=== PATIENT | female | born 1995 | race Caucasian/White ===

== ENCOUNTER 2024-03-03 06:20 | Emergency (ER) | payer MEDICAID ==
[~2024-03-03] VITALS: Ht 165.1 cm; Wt 65.0 kg
[2024-03-03 06:24] VITALS: TEMP 97.8; O2SAT 97
[2024-03-03 08:01] LABS: BASOPHILS % 0.2 % (0.0-2.0); EOSINOPHILS % 0.7 % (0.0-5.0); HEMATOCRIT. 42.1 % (36.0-48.0); HEMOGLOBIN. 13.5 g/dL (12.0-16.0); LYMPHOCYTES % 13.5 % (20.0-50.0); MEAN CORPUSCULAR HEMOGLOBIN 30.4 pg (28.0-32.0); MEAN CORPUSCULAR HGB CONC 32.1 g/dL (31.0-37.0); MEAN CORPUSCULAR VOLUME 94.8 fL (81.0-99.0); MEAN PLATELET VOLUME 8.5 fl (7.4-10.4); MONOCYTES % 5.2 % (2.0-8.0); NEUTROPHILS % 80.4 % (40.0-76.0); PLATELET 266 x1000/uL (130-400); RED BLOOD CELL COUNT 4.44 mill/uL (4.2-5.4); RED CELL DISTRIBUTION WIDTH 13.3 % (11.6-14.6); WHITE BLOOD COUNT 11.5 x1000/uL (4.5-11.0)
[2024-03-03 09:30] LABS: CHLORIDE 106 mEq/L (98-107); POTASSIUM 4.8 mEq/L (3.5-5.1); SODIUM 141 mEq/L (136-145)
[2024-03-03 09:31] LABS: CARBON DIOXIDE 24 mEq/L (21-32)
[2024-03-03 09:36] LABS: CREATININE 0.8 mg/dL (0.6-1.0); ETHANOL BLOOD < 10 mg/dL (<10); GLUCOSE 90 mg/dL (70-105); UREA NITROGEN BLOOD 10 mg/dL (9-23)
[2024-03-03 10:00] VITALS: BP 104/43; PULSE 98; RESP 15; O2SAT 98
[2024-03-03] MEDS ORDERED: NALO4SPR BOTHNSTRLS (10:25)
== END 2024-03-03 06:34 | disposition left against medical advice (07) ==
LOC: ER 06:20
DX: T40.2X1A Poisoning by other opioids, accidental (unintentional), initial encounter (principal); F15.10 Other stimulant abuse, uncomplicated; Y92.9 Unspecified place or not applicable
CPT/HCPCS: 36415; 71045; 80048; 80320; 85025; 99284; G0480

== ENCOUNTER 2024-08-08 18:58 | Emergency (ER) | payer MEDICAID ==
[~2024-08-08] VITALS: Ht 165.1 cm; Wt 64.0 kg
[~2024-08-08 18:58] MED LIST: NALO4SPR BOTHNSTRLS
[2024-08-08 19:04] VITALS: BP 99/46; TEMP 36.6; O2SAT 99
[2024-08-08 19:10] VITALS: PULSE 99; RESP 18; O2SAT 97
== END 2024-08-08 21:45 | disposition left against medical advice (07) ==
LOC: ER 18:58
DX: L02.416 Cutaneous abscess of left lower limb (principal); Z53.21 Procedure and treatment not carried out due to patient leaving prior to being seen by health care provider

== ENCOUNTER 2024-09-03 21:53 | Emergency (ER) | payer MEDICAID ==
[~2024-09-03] VITALS: Ht 165.1 cm; Wt 66.0 kg
[2024-09-03 21:57] VITALS: TEMP 36.8; O2SAT 100
[2024-09-03] MEDS ORDERED: AMOX1TAB16 MT (23:25)
[2024-09-03] MEDS: KETOROLAC 15MG/ML VIAL IM ONE (23:25)
[2024-09-03] MEDS ORDERED: NAPR-1176 MT (23:25)
[2024-09-03 23:43] VITALS: BP 130/83; PULSE 80; RESP 18; O2SAT 100
== END 2024-09-03 23:50 | disposition home or self-care (01) ==
LOC: ER 21:53
DX: K04.7 Periapical abscess without sinus (principal); Z79.899 Other long term (current) drug therapy
CPT/HCPCS: 99283; 81025; 96372; J1885